=== PATIENT | male | born 1970 | race Caucasian/White ===

== ENCOUNTER 2021-06-23 15:10 | Emergency (ER) | payer SELFPAY ==
[~2021-06-23] VITALS: Ht 172.7 cm; Wt 91.0 kg
[2021-06-23 15:13] VITALS: BP 116/94
--- NOTE | 2021-06-23 15:13 | PHYS DOC ---
Adult General HPI HPI Patient is a 51-year-old male presenting for left lower extremity cellulitis and swelling. This is an acute on chronic issue. Reports this is been going on for years but states he accidentally grazed his left lateral portion of lower leg on fence the other day causing it to weep and become more hot and painful to the touch concerning for him for infection. States he has been using triple antibiotic ointment fairly consistently over past x1 year. Also reports he has been taking friend's leftover amoxicillin tablets of unknown dose and varying frequencies for past 72 hours. Denies fever. Admits he does not have health insurance and does not want advanced work-up, he is just here for pain control and antibiotics. He has history of gout otherwise no other known medical issues, takes no medications on a consistent basis Review of Systems Review of Systems Fourteen body systems of review of systems have been reviewed. See HPI for pertinent positives and negative responses, other weir all other systems are negative, non-pertinent or non-contributory Physical Exam Physical Exam Constitutional: Well developed, well nourished, no acute distress, non-toxic appearance. Poor overall hygiene HENT: Normocephalic, atraumatic, bilateral external ears normal, oropharynx moist, no oral exudates, nose normal. Eyes: PERRLA, EOMI, conjunctiva normal, no discharge. Neck: Normal range of motion, no tenderness, supple, no stridor. Cardiovascular: Heart rate regular, sinus rhythm, no murmurs rubs or gallops Lungs & Thorax: Bilateral breath sounds clear to auscultation Abdomen: Bowel sounds normal, soft, no tenderness, no masses, no pulsatile masses. Nonsurgical abdomen, no peritoneal signs Skin: Warm, dry, erythema and blistering with some areas of skin breakdown to entire circumferential portion of left lower leg not including the knee and/or ankle. Back: No tenderness, no CVA tenderness. Extremities: No tenderness, no cyanosis, no clubbing, ROM intact, 3+ edema of left foot with palpable TP and DP pulses Neurologic: Alert and oriented X 3, normal motor & sensory function to bilateral lower extremities, no focal deficits noted. Psychologic: Affect normal, judgement normal, mood normal. Current Patient Data Vital Signs Vital Signs Date Time Temp Pulse Resp B/P (MAP) Pulse Ox O2 Delivery O2 Flow Rate FiO2 06/23/21 15:13 98.3 84 16 116/94 96 Room Air Vital Signs Date Time Temp Pulse Resp B/P (MAP) Pulse Ox O2 Delivery O2 Flow Rate FiO2 06/23/21 15:13 98.3 84 16 116/94 96 Room Air EKG EKG [] Radiology/Procedures Radiology/Procedures [] Heart Score C/O Chest Pain: No Risk Factors: Risk Factors: DM, Current or recent (<one month) smoker, HTN, HLP, family history of CAD, obesity. Risk Scores: Risk Factors: DM, Current or recent (<one month) smoker, HTN, HLP, family history of CAD, obesity. Course & Med Decision Making Course & Med Decision Making ABCs unremarkable. I disclosed entirety of ER findings and discussed most likely diagnosis of left lower extremity cellulitis without involvement of left foot. Other diagnoses were discussed with patient such as dependent edema, osteomyelitis and other potential emergent diagnoses but all deemed less likely causes of patient's presentation. I disclosed without labs, radiograph and other work-up that I cannot definitively rule out these other diagnoses but patient citing fact that he does not have insurance and means to pay for this visit today continues to defer. He is wanting antibiotics only and close follow-up in outpatient setting with non-[facility]/clinic here locally to see and get further care for this. As such, plan of care discussed at length with need for close outpatient follow-up to review today's ER visit stressed. Strict return precautions were also discussed at length with good understanding verbalized by patient. Patient voiced understanding and agreement with the plan. Patient knows to come back for repeat evaluation if concerning signs or symptoms present prior to outpatient follow-up. Hemodynamically stable, ambulatory and well-appearing at time of disposition. Dragon Disclaimer Dragon Disclaimer This electronic medical record was generated, in whole or in part, using a voice recognition dictation system. Departure Departure: Impression: Primary Impression: Cellulitis of left lower extremity without foot Additional Impression: Edema of left foot Disposition: HOME / SELF CARE / HOMELESS Condition: STABLE Patient Instructions: Cellulitis, Sulfamethoxazole; Trimethoprim, [id number]-TMP tabl ets Additional Instructions: You were seen for an infection called cellulitis. You should karan the area of redness when you get home. If your redness spreads past the marked area at 24 hours you should have it evaluated again. You do not have an abscess right now but you could develop one. If so you will need to have it drained. You should return to the ED immediately if you develop worsening pain, fever, swelling, redness, drainage, any sign of abscess, or any other new or concerning symptoms. Take the entire course of antibiotics as prescribed. Please use the information provided below to follow-up in the outpatient setting for repeat evaluation and continued work-up [facility] Address: [address], [place] [address] Hours: 8am-4:30pm Problem Qualifiers DIANN ATKINS DO Jun 23, 2021 15:13
[2021-06-23] MEDS ORDERED: SULF1TAB24 PO (15:35)
[2021-06-23] MEDS ORDERED: SMZ/TMP 800/160MG TABLET. PO ONE (15:45)
[2021-06-23] MEDS ORDERED: ACETAMINOPHEN 325 MG TABLET PO ONE (15:45)
== END 2021-06-23 15:46 | disposition home or self-care (01) ==
LOC: ER 15:10
DX: L03.116 Cellulitis of left lower limb (principal); R60.0 Localized edema
CPT/HCPCS: 99283